=== PATIENT | male | born 1980 | race Caucasian/White ===

== ENCOUNTER 2025-07-08 13:58 | Emergency (ER) | payer OTHER, SELFPAY ==
--- NOTE | ~2025-07-08 | CT_ITS ---
CLINICAL HISTORY: left flank pain CT abdomen and pelvis without contrast Comparison: None provided Findings: No consolidation or effusion. Unremarkable abdominal organs. No renal or ureteral calculus or hydronephrosis. Prior cholecystectomy. Moderately severe fecal retention within the colon. Moderate distention of the stomach with ingested material. No bowel edema or dilatation. Pelvic contents unremarkable. Normal appendix. No acute fracture. IMPRESSION: 1. No urolithiasis or hydronephrosis. 2. Moderately severe fecal retention within the colon. This document has been electronically signed by: Monae West MD on 07/08/2025 16:47:03
[2025-07-08 14:05] VITALS: BP 156/90; PULSE 80; O2SAT 99
[2025-07-08 14:23] VITALS: BP 120/61; PULSE 69; RESP 16; TEMP 36.6; O2SAT 98; BMI 29.8
[2025-07-08 14:34] LABS: Appearance Urine Clear; Glucose Urine UA Negative (Negative); PH 6.0 (5.0-9.0); Specific Gravity - Urine 1.010 (1.005-1.025)
[2025-07-08 14:37] LABS: MANUAL DIFF FLAG NO
[2025-07-08 14:38] LABS: Hematocrit 37.8 % (42.0-52.0); Hemoglobin 13.6 g/dl (14.0-18.0); Imm Gran Abs Auto 0.05 X10*3/uL (0.00-0.03); Imm Gran Pct Auto 0.7 % (0.0-0.4); Lymphocytes Absolute Auto 1.9 X10*3/uL (1.2-4.9); Mean Corpuscular HGB Conc 36.0 g/dl (31.0-36.0); Mean Corpuscular Hemoglobin 31.1 pg (27.0-33.0); Mean Corpuscular Volume 86.3 fL (80.0-98.0); NRBC Abs Auto 0.000 X10*3/uL (0.0-0.012); NRBC Pct Auto 0.0 /100WBC (0.0-0.2); Platelet Count 178 X10*3/uL (160-400); Red Blood Count 4.38 X10*6/uL (4.60-5.80); White Blood Count 7.6 X10*3/uL (4.8-10.8)
--- NOTE | 2025-07-08 14:44 | ED.MALEGU ---
HPI - Male Genitourinary General Chief complaint: Urogenital-Male Stated complaint: L FLANK PAIN X 1 WK, H/O KID STONES Time Seen by Provider: 07/08/25 14:39 Source: patient and EMS Mode of arrival: EMS Limitations: no limitations History of Present Illness ED Provider: DR. Lind HPI Narrative: 44-year-old male history of kidney stone presented today with left flank pain x 5 days, +frequency urination, no hematuria, no dysuria. No fever, no chills, no bleeding, +left flank pain. No history of intra-abdominal surgery in the past, + frequency urination. Related Data Home Medications ?Medication ?Instructions ?Recorded ?Confirmed acetaminophen 325 mg tablet 650 mg PO Q4H PRN Pain (Scale 07/08/25 07/08/25 Score 1-3) calcium carbonate 500 mg PO Q4H PRN Heartburn 07/08/25 07/08/25 clonidine HCl 0.1 mg tablet 0.1 mg PO BID PRN Anxiety 07/08/25 07/08/25 desvenlafaxine 50 mg 50 mg PO DAILY 07/08/25 07/08/25 tablet,extended release 24 hr docusate sodium 100 mg capsule 100 mg PO BID PRN Constipation 07/08/25 07/08/25 guaifenesin 600 mg tablet, 1,200 mg PO Q12H PRN Cough 07/08/25 07/08/25 extended release 12 hr hydroxyzine pamoate 50 mg capsule 50 mg PO Q4H PRN Anxiety 07/08/25 07/08/25 ibuprofen 400 mg tablet 400 mg PO Q8H PRN Pain 07/08/25 07/08/25 lidocaine 4 % topical patch 1 patch topical DAILY 07/08/25 07/08/25 loperamide 2 mg tablet 2 mg PO QID PRN Loose Stool 07/08/25 07/08/25 melatonin 3 mg tablet 3 mg PO BEDTIME PRN Insomnia 07/08/25 07/08/25 mirtazapine 7.5 mg tablet 7.5 mg PO BEDTIME 07/08/25 07/08/25 nicotine (polacrilex) 2 mg gum 2 mg buccal Q2H PRN NICOTINE 07/08/25 07/08/25 WITHDRAWAL nicotine 21 mg/24 hr daily 1 patch transdermal DAILY 07/08/25 07/08/25 transdermal patch olanzapine 5 mg disintegrating 5 mg PO DAILY PRN AGITATION/RACING 07/08/25 07/08/25 tablet THOUGHTS olanzapine 7.5 mg tablet 7.5 mg PO BEDTIME 07/08/25 07/08/25 ondansetron 4 mg disintegrating 4 mg PO Q6H PRN N/V 07/08/25 07/08/25 tablet sennosides 8.6 mg tablet (senna) 17.2 mg PO DAILY PRN Constipation 07/08/25 07/08/25 Previous Rx's ?Medication ?Instructions ?Recorded docusate sodium 100 mg capsule 100 mg PO BID #30 caps 07/08/25 (Colace) polyethylene glycol 3350 17 17 g PO DAILY #510 grams 07/08/25 gram/dose oral powder (Miralax) Allergies Allergy/AdvReac Type Severity Reaction Status Date / Time No Known Allergies Allergy Verified 07/08/25 14:25 Review of Systems Review of Systems: All other systems are reviewed and are negative Constitutional: Reports as per HPI and Reports no additional constitutional complaints Eyes: Reports as per HPI and Reports no additional eye complaints Reports system reviewed and no additional complaints, except as documented Cardiovascular: Reports as per HPI and Reports no additional cardiovascular complaints Respiratory: Reports as per HPI and Reports no additional respiratory complaints Gastrointestinal: Reports as per HPI and Reports no additional gastrointestinal complaints Genitourinary: Reports no additional female genitourinary complaints Musculoskeletal: Reports no additional musculoskeletal complaints Skin/Breast: Reports system reviewed and no additional complaints, except as docu Psychiatric: Reports no additional psychiatric complaints Endocrine: Reports no additional endocrine complaints Hematologic/Lymphatic: Reports no additional hematologic/lymphatic complaints Allergic/Immunologic: Reports no additional allergic/immunologic complaints Reports system reviewed and no additional complaints, except as documented and Reports Abnormal speech present [facility] Social History Social History Smoked in Last 30 Days: No Use of substances other than those prescribed or required for medical reasons: No Advance Directives: Yes Advance Directives Information Provided: No Advance Directives on File: No Physical Exam Vital Signs: Vital Signs: Last Vital Signs Temp 98.1 F 07/08/25 16:20 Pulse 63 07/08/25 16:20 Resp 20 07/08/25 16:20 BP 99/62 07/08/25 16:20 Pulse Ox 97 07/08/25 16:20 O2 Del Method Room Air 07/08/25 16:20 BMI result Body Mass Index 29.8 Vital signs have been reviewed and appear to be correct. Blood pressure elevated. Heart rate normal. Respiratory rate normal. Temperature normal. Oxygen saturation normal. Appearance: Alert. Oriented X3. No acute distress. Head: Normal external exam. Normocephalic. Atraumatic. No Clay signs noted. No raccoon eyes noted Eyes: PERRLA. EOMI. Conjunctiva and sclera normal. Eyelids normal. ENT: TM's Normal. Pharynx normal. Uvula midline. Moist mucous membranes. No trismus noted. No drooling noted. No muffled voice noted. Neck: Normal inspection. Neck supple. FROM. No adenopathy. Thyroid Normal. No meningeal signs. No neck mass noted. CVS: Normal heart rate and rhythm. Heart sound normal. No murmurs noted. Pulses normal throughout. Respiratory: No respiratory distress. Painless inspiration. Breath sounds normal. No wheezes/rales/rhonchi noted. Chest nontender. No accessory muscle usage noted or decreased air movement noted. Abdomen: Soft and nontender. Bowel sounds normal in all 4 quadrants. No distention noted. No organomegaly noted. No visible injury noted. Back: L CVA tenderness. Full range of motion noted. Skin: Skin warm and dry. Normal skin color. Normal skin turgor. No rashes/lesions/lacerations noted. Extremities: No lower extremity edema. Extremities exhibit normal range of motion. Extremities nontender. Neuro: Oriented X 3. Cranial nerve exam: II-XII are grossly intact No motor deficit. No sensory deficit. Reflexes normal. Course Reevaluation(s) Reevaluation #1: Left flank pain history of kidney stones. Await for CT reading. UA is clear and clean. Signed out to Dr. Morris to check CT abdomen and pelvis. Time: 03:30 Reevaluation #2: MELIDA Vargas 07/08/251816 I received patient in sign-out pending imaging and disposition. In summary, patient presents from [facility] with reported left flank and left lower abdominal pain x5 days. Reports urinary frequency this morning without overt hematuria. No other urinary symptoms. Reports history of renal stones. CBC without leukocytosis or anemia. Chemistry does not reveal SOFÍA. Urinalysis negative for infection or blood. CT scan does not demonstrate urolithiasis or hydronephrosis. There is moderately severe fecal retention within the colon. No evidence of bowel obstruction. I discussed results with my attending dr. dalton. There is no rectal fecal impaction so patient would not benefit from disimpaction in the ED. Will start him on bowel regimen of MiraLax and Colace and discharge back to facility. Patient has remained stable throughout ED visit today. Discussed worrisome signs and symptoms and when to return to the ED. All questions answered at this time. Patient is agreeable with disposition and stable for discharge. Medications Administered Discontinued Medications Generic Name Dose Route Start Last Admin Trade Name Freq PRN Reason Stop Dose Admin Docusate Sodium 200 mg 07/08/25 17:59 07/08/25 18:06 Docusate Sodium 100 Mg Capsule PO 07/08/25 18:00 200 mg ONCE ONE Administration Hydromorphone HCl 1 mg 07/08/25 14:42 07/08/25 14:59 Hydromorphone Hcl 1 Mg/Ml Syringe IVPUSH 07/08/25 14:43 1 mg ONCE ONE Administration Protocol Sodium Chloride 1,000 mls @ 999 mls/hr 07/08/25 14:44 07/08/25 16:42 Ns IV 07/08/25 15:44 Infused .Q1H1M ONE Infusion Acetaminophen 1,000 mg in 100 mls @ 400 mls/hr 07/08/25 17:59 07/08/25 18:07 Ofirmev IV 07/08/25 18:13 400 mls/hr ONCE ONE Administration Ketorolac Tromethamine 15 mg 07/08/25 14:42 07/08/25 14:59 Ketorolac Tromethamine 15 Mg/Ml Vial IVPUSH 07/08/25 14:43 15 mg ONCE ONE Administration Polyethylene Glycol 17 gm 07/08/25 17:59 07/08/25 18:07 Polyethylene Glycol 3350 17 Gm Powd.Pack PO 07/08/25 18:00 17 gm ONCE ONE Administration Medical Decision Making Differential Diagnosis Differential Diagnoses: The differential diagnosis associated with the presentation includes (Renal colic, gallbladder colic, acute appendicitis, pyelonephritis, electrolyte derangement, severe anemia.) Admission/Observation Consideration of admission/observation: Escalation of care including admission/observation considered Lab Data MDM Lab Attestation statement: I reviewed the patient's lab results. 07/08/25 14:34 07/08/25 14:34 Labs: Lab Results 07/08/25 07/08/25 Range/Units 14:27 14:34 WBC 7.6 (4.8-10.8) X10*3/uL RBC 4.38 L (4.60-5.80) X10*6/uL Hgb 13.6 L (14.0-18.0) g/dl Hct 37.8 L (42.0-52.0) % MCV 86.3 (80.0-98.0) fL MCH 31.1 (27.0-33.0) pg MCHC 36.0 (31.0-36.0) g/dl RDW 13.1 (11.0-16.0) % Plt Count 178 (160-400) X10*3/uL MPV 9.8 (9.4-12.4) fL Immature Gran % (Auto) 0.7 H (0.0-0.4) % Neut % (Auto) 62.4 (45-73) % Lymph % (Auto) 25.5 (20-40) % [place] % (Auto) 8.5 (2-11) % Eos % (Auto) 2.5 (0-4) % Baso % (Auto) 0.4 (0-2) % Lymph # (Auto) 1.9 (1.2-4.9) X10*3/uL [place] # (Auto) 0.6 (0.1-1.2) X10*3/uL Eos # (Auto) 0.2 (0.0-0.4) X10*3/uL Baso # (Auto) 0.0 (0.0-0.2) X10*3/uL Abs Immat Gran (auto) 0.05 H (0.00-0.03) X10*3/uL Absolute Neuts (auto) 4.7 (2.0-8.3) x10*3/uL Absolute Nucleated RBC 0.000 (0.0-0.012) X10*3/uL Nucleated RBC % (auto) 0.0 (0.0-0.2) /100WBC Sodium 141 (135-145) mmol/L Potassium 4.0 (3.3-5.1) mmol/L Chloride 105 (96-108) mmol/L Carbon Dioxide 29 (22-29) mmol/L Anion Gap 11 L (12-20) BUN 16 (9-16) mg/dL Creatinine 0.74 (0.5-1.4) mg/dL Estim Creat Clear Calc 159.0 Estimated GFR > 60 Random Glucose 114 (60-115) mg/dL Calcium 8.8 (8.4-10.2) mg/dL Total Bilirubin 0.5 (0.0-1.0) mg/dL AST 25 (5-37) U/L ALT 30 (0-40) U/L Alkaline Phosphatase 40 (39-117) U/L Total Protein 6.3 L (6.5-8.0) g/dL Albumin 4.1 (3.5-5.0) g/dL Urine Color Yellow Urine Appearance Clear Urine pH 6.0 (5.0-9.0) Ur Specific [place] 1.010 (1.005-1.025) Urine Protein Negative (Neg-Trace) mg/dL Urine Glucose (UA) Negative (Negative) mg/dL Urine Ketones Negative (Negative) mg/dL Urine Blood Negative (Negative) Urine Nitrite Negative (Negative) Ur Leukocyte Esterase Negative (Negative) Independent Interpretation I performed an independent interpretation of an: CT Scan Radiology Impression Discussion of test interpretation with radiology: I have reviewed the radiologist's reading. Discharge Plan Discharge Clinical Impression: Left flank pain, Constipation Patient Disposition: Home, Self-Care Instructions: Abdominal Pain (ED) Additional Instructions: You were evaluated in the ED today for left flank/abdominal pain Your blood work is reassuring Your urine does not demonstrate blood or infection The CT scan of your abdomen shows that you are very constipated. There is no evidence of bowel obstruction. You need to be placed on a bowel regimen. I am recommending MiraLax to start having large bowel movements. I also recommend Colace, a stool softener. Take this twice daily. Return with any new or worsening symptoms. In the case of an emergency call 911. Prescriptions: New polyethylene glycol 3350 [Miralax] 17 gram/dose powder 17 g PO DAILY Qty: 510 0RF docusate sodium [Colace] 100 mg capsule 100 mg PO BID Qty: 30 0RF No Action sennosides [senna] 8.6 mg Tablet 17.2 mg PO DAILY PRN (Reason: Constipation) clonidine HCl 0.1 mg Tablet 0.1 mg PO BID PRN (Reason: Anxiety) acetaminophen 325 mg Tablet 650 mg PO Q4H PRN (Reason: Pain (Scale Score 1-3)) lidocaine 4 % Adhesive Patch,Medicated 1 patch TOPICAL DAILY Rx Instructions: REMOVE AFTER 12 HOURS nicotine (polacrilex) 2 mg Gum 2 mg BUCCAL Q2H PRN (Reason: NICOTINE WITHDRAWAL) loperamide 2 mg Tablet 2 mg PO QID PRN (Reason: Loose Stool) Rx Instructions: administer after each loose stool until symptoms controlled; do not exceed 8 mg per 24 hrs hydroxyzine pamoate 50 mg Capsule 50 mg PO Q4H PRN (Reason: Anxiety) melatonin 3 mg Tablet 3 mg PO BEDTIME PRN (Reason: Insomnia) olanzapine 7.5 mg Tablet 7.5 mg PO BEDTIME ibuprofen 400 mg Tablet 400 mg PO Q8H PRN (Reason: Pain) nicotine 21 mg/24 hr Patch 24 Hour 1 patch TRANSDERMAL DAILY docusate sodium 100 mg Capsule 100 mg PO BID PRN (Reason: Constipation) calcium carbonate [Tums 500] 500 mg calcium (1,250 mg) Tablet,Chewable 500 mg PO Q4H PRN (Reason: Heartburn) ondansetron 4 mg Tablet,Disintegrating 4 mg PO Q6H PRN (Reason: N/V) olanzapine 5 mg Tablet,Disintegrating 5 mg PO DAILY PRN (Reason: AGITATION/RACING THOUGHTS) mirtazapine 7.5 mg Tablet 7.5 mg PO BEDTIME desvenlafaxine 50 mg Tablet Extended Release 24 Hr 50 mg PO DAILY guaifenesin 600 mg Tablet Extended Release 12hr 1,200 mg PO Q12H PRN (Reason: Cough) Referrals: Physician,Unknown J [Primary Care Provider, Medical] Print Language: Cypriot
[2025-07-08 14:59] VITALS: RESP 16
[2025-07-08 15:03] LABS: Alanine Aminotransferase 30 U/L (0-40); Albumin Level 4.1 g/dL (3.5-5.0); Alkaline Phosphatase 40 U/L (39-117); Anion Gap 11 (12-20); Aspartate Amino Transferase 25 U/L (5-37); Blood Urea Nitrogen 16 mg/dL (9-16); Calcium 8.8 mg/dL (8.4-10.2); Carbon Dioxide 29 mmol/L (22-29); Chloride 105 mmol/L (96-108); Creatinine Clr Calc Pharmacy 159.0; Estimated Glomerular Filt Rate > 60; Potassium 4.0 mmol/L (3.3-5.1); Sodium 141 mmol/L (135-145); Total Protein 6.3 g/dL (6.5-8.0)
--- NOTE | 2025-07-08 15:18 | PC.NURSE ---
Pt changed over into safety clothing and security did safety check due to coming from psych facility. 1:1 sitter. pt denies SI or HI. here for R/O kidney stone. 5 days of LLQ ABD pain radiating to left flank with frequent urination.
--- OUTSIDE RECORDS SUMMARY | 2025-07-08 15:30 | XMS_ITS | Data Portability ---
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 Address [address] [place] [address] Care Team Providers Care Client Finance Analyst Name Role Phone JENISE DUFFY Primary Care Provider [phone] Assessment Encounter Date Assessment Date Assessment LastModified by Organization Details LastModified Time 03/30/2024 03/30/2024 Reviewed: [facility] Disclaimer: Portions of this note were created with the assistance of YAMAP speech recognition software and may include typographical or grammatical errors or unintentional word/phrase substitutions.Pl ease do not hesitate to contact directly with any questions or concerns. Discussed risks and benefits of all medications prescribed today. Patient voices understanding of presented plan and treatment course. [email or web address] Not available 03/28/2024 18:40:38 Plan of Treatment Reminders Order Date Submit Date Provider Last Modified By Organization Details Last Modified Time Details Appointments None recorded. Lab TSH, serum or plasma [address] [facility] - [facility], [address] [place] [address], [address], 4 12:58:08 vitamin B12, serum [email or web address], [address] [place] [address], [address], 4 12:58:08 CMP, serum or plasma [address] [facility], [address] [place] [address], [address], 4 12:58:07 CBC w/ diff 2022 023 [email or web address] [facility], [address] [place] [address], [address], 4 12:58:07 vitamin D, 25-hydroxy, total, serum 2022 023 [email or web address], [address] [place] [address], [address], 4 12:58:08 lipid panel, serum 2022 023 [email or web address], [address] [place] [address], [address], 4 12:58:08 Referral facial plastic surgeon referral 2024 025 [email or web address] 5 [facility] [address], [address] [facility], [place], [address], 5 21:06:22 ENT surgery referral - 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, [facility], [place], [address], 5 11:13:20 Procedures None recorded. Surgeries None recorded. Imaging None recorded. Medication Orders trazodone 100 mg tablet 2024 025 [employer] | mentor | [address], [address] [place], [address], 5 15:53:22 citalopram 20 mg tablet 2024 025 [employer] | mentor | [address], [address] [place], [address], 5 15:53:21 hydroxyzine HCl 25 mg tablet 2024 025 [employer] | mentor | [address], [address] [place], [address], 5 15:53:23 amoxicillin 500 mg capsule 2023 025 [facility], [address] [place], [place], [id number], 15:23:10 Unisom (doxylamine ) 25 mg tablet 2023 024 [employer] | mentor | [address], [address] [place], [address], 5 15:33:05 escitalopra m 10 mg tablet 2023 024 [employer] | mentor | [address], [address] [place], [address], 5 15:32:02 clonidine HCl 0.1 mg tablet 2023 024 [employer] | mentor | [address], [address] [place], [address], 5 15:23:32 citalopram 20 mg tablet 2022 023 [employer] | mentor | [address], [address] [place], [address], 3 15:11:05 Patient TargetsNo targets recorded. Patient Instructions Encounter Date Encounter Id Patient Instructions Last Modified By Organization Details Last Modified Time 04/22/2023 [id number] low back pain: exercises [email or web address] Not available 04/22/2023 15:11:03 Lab studies, other chart documentation, ordered studies and the visit lasted 30 minutes including documentation. 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 ordered by neurology at [facility], known perforation getting worse Referring Physician: Jenise Duffy [facility], Encounter Date: 07/25/2024 Facial Plastic Surgeon Refer ral for Perforation of nasal septum Referring Physician: Jenise Duffy [facility], Encounter Date: 03/15/2025 Results Created Date Observation Date Name Description Value Unit Range Abnormal Flag Note LastModifiedBy Organization Detail LastModifiedTime 06/28/20 24 06/24/2024 byron nuous video EEG monit oring , techn ical compo nent; 2-12 hrs (PROC ) No observ ation record ed. [email or web address] Not Available 2023 14:21:42 07/14/20 24 07/11/2024 MRI, brain , w/wo contr ast No observ ation record ed. PAYTON Not Available 2023 12:19:54 Result Notes None recorded. Problems Name Problem SNOMED Code Status Onset Date Resolution Date Notes Provider Name and Address Organization Details Recorded Time Bony swelling of the foot joint 729804755 Active Marika Fu CMA null, [place] [facility] 3 14:48:07 Chest pain 92890973 Active Marika Fu CMA null, [facility] 3 14:48:07 Tobacco dependen ce syndrome 68153253 Active Marika Fu CMA null, [facility] 3 14:48:07 Sinusiti s 55565658 Active Marika Fu CMA null, [facility] 3 14:48:07 Cholecys titis 78045253 Active Not Available [facility] 2 11:04:12 Biliary calculus 207061749 Active Not Available [facility] 2 11:04:12 Edema of uvula 465607018 Active Marika Fu CMA null, [facility] 3 14:48:07 Abscess of submandi bular region 23813194 Active Marika Fu CMA null, [facility] 3 14:48:07 Epilepsy 06449264 Active Marika Fu CMA null, [facility] 3 14:48:07 Omphalit is 204743939 Completed 03/27/[address], [address], [facility] [employer] [facility] 4 07:54:50 Chest pain 33471077 Completed 06/20/2015 Netta Muhammad [address], [address], [facility] [employer] [facility] 6 14:45:39 Sinusiti s 80738086 Completed 06/20/2015 Netta Muhammad [address], [address], [facility] [employer] [facility] 6 14:45:39 Easy bruising 937898423 Active 2016 Marika Fu CMA null, [facility] [employer] [facility] 3 14:48:07 History of cocaine abuse 39070309476 9106 Active 2018 Marika Fu CMA null, [facility] [employer] [facility] 3 14:48:07 Anxiety 48323588 Active [address], [address], [facility] [employer] [facility] 4 13:19:48 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 Please review this document and add these problems to the patient's chart manually as needed. Problem Notes None recorded. Procedures Surgical History Date Name Laterality Status Provider Name and Address Organization Details Recorded Time 10/04/18 97 Orthopedic Surgery completed [facility] 02/14/2014 09:54:17 Tonsillectomy completed [facility] 02/14/2014 09:54:17 PE Tubes completed [facility] 02/14/2014 09:54:17 Imaging Results None recorded. Procedure Notes None recorded. Medical Equipment None Reported. Allergies Allergen ID Allergen Name Allergen Category Reaction Reaction Severity Criticality Documentation Date Start Date Code Code System Note Provider Name and Address Organization Details Recorded Time 787206 No known allergy (situatio n) Not available Not available Not available Not available 07/02/2022 96781 6003 SNOMED Karo DanielleWabasso [address] [place] [address], [address] [place] [address] 14:37:48 No known drug allergies Medications Name Sig Start Date Stop Date Status Note LastModified by Organization Details LastModified Time amoxicilli n cap 500mg active Not Available Not Available Not Available cyclobenza bebeto 10 mg tablet 04/22 completed Not Available Not Available Not Available amoxicilli n 500 mg capsule Take 1 capsule every 8 hours by oral route for 10 days. 03/15 completed Not Available Not Available Not Available Flomax 0.4 mg capsule 06/04 completed Not Available Not Available Not Available sennosides 8.6 mg tablet 06/04 completed Not Available Not Available Not Available Colace 100 mg capsule 04/22 completed not taking Not Available Not Available Not Available clonidine HCl 0.1 mg tablet take one as needed for anxiety spikes not to exceed three a day. 03/15 completed Not Available Not Available Not Available Dilaudid 2 mg tablet 06/04 completed Not Available Not Available Not Available doxycyclin e hyclate 100 mg capsule Take 1 capsule twice a day by oral route for 28 days. 03/09 completed Not Available Not Available Not Available levetirace zarate 500 mg tablet Take 1 tablet twice a day by oral route. 03/15 completed Not Available Not Available Not Available Lasix 40 mg tablet 06/04 completed Not Available Not Available Not Available prednisone 20 mg tablet 06/04 completed Not Available Not Available Not Available penicillin V potassium 500 mg tablet Take 1 tablet every 6 hours by oral route for 5 days. 07/02 completed Not Available Not Available Not Available hydroxyzin e HCl 50 mg tablet Take 1 tablet every day by oral route as needed. 02/20 completed Not Available Not Available Not Available sulfametho xazole 800 mg-trimeth oprim 160 mg tablet TAKE 1 TABLET BY MOUTH TWICE A DAY FOR 10 DAYS 01/28 completed Not Available Not Available Not Available amoxicilli n 500 mg tablet Take 1 tablet every 12 hours by oral route for 10 days. 08/27 completed Not Available Not Available Not Available Dulcolax (bisacodyl ) 10 mg rectal suppositor y 06/04 completed Not Available Not Available Not Available amoxicilli n 875 mg tablet 07/02 completed Not Available Not Available Not Available citalopram 20 mg tablet TAKE ONE TABLET BY MOUTH EVERY DAY 2024 active Not Available Not Available Not Avai lable fentanyl 100 mcg/hr transderma l patch 06/04 completed Not Available Not Available Not Available trazodone 100 mg tablet Take 1 tablet every day by oral route at bedtime. 2024 active Not Available Not Available Not Avai lable hydroxyzin e HCl 25 mg tablet Take 1 tablet 3 times a day by oral route as needed. 2024 active Not Available Not Available Not Avai lable gabapentin 100 mg capsule 06/04 completed Not Available Not Available Not Available ibuprofen 600 mg tablet 04/22 completed Not Available Not Available Not Available Unisom (doxylamin e) 25 mg tablet Take 1 tablet as needed by oral route at bedtime. 03/15 completed Not Available Not Available Not Available amoxicilli n 875 mg-potassi um clavulanat e 125 mg tablet TAKE 1 TABLET BY MOUTH TWICE DAILY FOR 7 DAYS 03/15 completed Not Available Not Available Not Available oxycodone 5 mg tablet TAKE 1 TO 2 TABLET BY MOUTH EVERY 4 HOURS NEEDED 04/22 completed not taking Not Available Not Available Not Available Coreg 12.5 mg tablet 06/04 completed Not Available Not Available Not Available escitalopr am 10 mg tablet take 1/2 tablet a day in the morning for a week; then take a full tablet every day. 03/15 completed Not Available Not Available Not Available Pain Relief Extra Strength (acetamino phen) 500 mg tablet 04/22 completed Not Available Not Available Not Available chlorhexid ine gluconate 0.12 % mouthwash 07/02 completed Not Available Not Available Not Available cholecalci ferol (vitamin D3) 25 mcg (1,000 unit) chewable tablet 06/04 completed Not Available Not Available Not Available oxycodone 5 mg tablet,ora l ONLY (not feeding tubes) 04/22 completed Not Available Not Available Not Available Lidocaine Pain Relief 4 % topical patch 04/22 completed Not Available Not Available Not Available Vitals Date Recorded Body weight Heart rate Oxygen saturation Oxygen saturation in Arterial blood by Pulse oximetry Body mass index (BMI) Body height Systolic And Diastolic Provider Name and Address Organization Details Last Updated DateTime 5 24493.7 7 g 76 /min 99 % 99 % 29.4 kg/m2 181.61 cm 130/82 mm[Hg] Saba Ortez [facility] [employer] [facility] 5 15:26:15 Date Recorded Heart rate Oxygen saturation Oxygen saturation in Arterial blood by Pulse oximetry Systolic And Diastolic Provider Name and Address Organization Details Last Updated DateTime 03/30/2024 110 /min 99 % 99 % 150/80 mm[Hg] Marika Fu [facility] [employer] [facility] 4 13:05:37 Date Recorded Body weight Heart rate Oxygen saturation Oxygen saturation in Arterial blood by Pulse oximetry Systolic And Diastolic Provider Name and Address Organization Details Last Updated DateTime 3 378976. 09 g 80 /min 97 % 97 % 110/78 mm[Hg] Marika Fu [facility] [employer] [facility] 14:51:52 Social History Question Answer Notes LastModified by Organization Details LastModified Time Tobacco Smoking Status Current Every Day Smoker Saba Pérez [facility] 03/15/2025 15:24:38 Do You Have An Advance Directive? Yes Father No Paper Work On File Information not available 06/20/2015 What Is Your Level Of Caffeine Consumption? Occasional Information not available 08/17/2013 How Much Tobacco Do You Chew? None Information not available 06/20/2015 In The 14 Days Before Symptom Onset, Have You Had Close Contact With A Laboratory-confi rmed COVID-19 While That Case Was Ill? No Information not available 01/29/2020 In The 14 Days Before Symptom Onset, Have You Had Close Contact With A Person Who Is Under Investigation For COVID-19 While That Person Was Ill? No Information not available 01/29/2020 What Type Of Diet Are You Following? REGULAR Information not available 03/30/2024 Which Illicit Or Recreational Drugs Have You Used? No Information not available 06/20/2015 Are There Any Guns Present In Your Home? No Information not available 06/20/2015 Hard Of Hearing Or Deaf In One Or Both Ears? No [email or web address] Information not available 02/14/2014 Legally Blind In One Or Both Eyes? No [email or web address] Information not available 02/14/2014 Foreign Travel Yes Informatio n not available 06/20/2015 Do You Have A Family History Of Mental Health Or Substance Abuse? No [email or web address] Information not available 02/14/2014 Date Of 1st Attempt 06/28/2024 Lvm [email or web address] Information not available 06/28/2024 Date Of 2nd Attempt 06/29/2024 [email or web address] Information not available 06/29/2024 Reason For TCM Note: Inpatient Hospital Discharge Inpatient Location: [facility] Admit/ Encounter Diagnosis: R569:Unspecif ied Convulsions Start Date/ Time: 06/19/2024 9:52 End Date/ Time: 06/24/2024 14:06 Discharge Dispo: Home, Self-Care Risk Stratificatio n: Low [email or web address] Information not available 06/28/2024 Medical Records Obtained From Discharging Facility? No Information not available 06/28/2024 Name Of Discharging Facility: [facility] Inpatient Location: [facility] Admit/ Encounter Diagnosis: R569:Unspecif ied Convulsions Start Date/ Time: 06/19/2024 9:52 End Date/ Time: 06/24/2024 14:06 Discharge Dispo: Home, Self-Care Risk Stratificatio n: Low [email or web address] Information not available 06/28/2024 Hospital/NH/ED Visit Date: 06/19/2024 Information not available 06/28/2024 Arrival Time: 9:52 [email or web address] Information not available 06/28/2024 Discharge Time: 14:06 [email or web address] Informati on not available 06/28/2024 Discharge Diagnosis: Unspecified Convulsions [email or web address] Information not available 06/28/2024 Discharge Date 06/24/2024 [email or web address] Informatio n not available 06/28/2024 Nurse Sign Off Of TCM Note: Peggy Ceron TCM Not Completed , Patient Declined .ALLYSSA [email or web address] Information not available 06/28/2024 Patient Agrees To TCM Assessment? No [email or web address] Information not available 06/29/2024 Date Contact Made With Patient 06/29/2024 Patientn Declined To Do TCM Stated Everything Is Fine . Advised To Call If Needed . Agreed [email or web address] Information not available 06/29/2024 Type Of Visit: Med/Surg [email or web address] Informatio n not available 06/28/2024 Patient Contacted After Discharge? Yes [email or web address] Information not available 06/29/2024 Have You Ever Experienced Any Trauma Such As A Sexual Assault, Domestic Violence, Combat Experience, A Sudden Of A Loved One, Or Anything That Made You Excessively Afraid? No Information not available 06/20/2015 Language POLISH Information not available 06/20/2015 Country Of Origin [place] Information not available 06/20/2015 Dietary Regular Information not available 08/17/2013 Marital Status Never Has Girlfriend, Don't Live Together Information not available 09/12/2015 What Was The Date Of Your Most Recent Tobacco Screening? 03/15/2025 Information not available 03/15/2025 How Many Children Do You Have? 1 G Age 6 Information not available 08/17/2013 Seat Belts Used Routinely Yes Information not available 06/20/2015 Smoke Alarm In Home Yes Information not available 06/20/2015 At What Age Did You Start Smoking Tobacco? 28 Information not available 09/12/2015 How Much Tobacco Do You Smoke? 0.25 PPD [email or web address] Information not available 03/15/2025 General Stress Level High Information not available 06/20/2015 Do You Use Sunscreen Routinely? Yes Information not available 06/20/2015 Sex: Male Functional Status Question Answer Note LastModified by Organizat ion Details LastModified Time Do you or have you ever used any other forms of tobacco or nicotine? Yes Information not available 04/22/2023 What is your level of alcohol consumption? None Information not available 03/30/2024 Do you or have you ever used smokeless tobacco? 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 Never used electronic cigarettes Information not available 02/20/2021 What is your exercise level? Moderate Information not available 06/20/2015 Mental Status None recorded. Family History Relationship Description Onset Age of this Age Resolved Age Notes LastModified by Organization Details LastModified Time Paternal Grandfather Myocardial infarction [email or web address] Not available 12/03 14:45:50 Maternal Grandmother Malignant neoplastic disease liver [email or web address] Not available 2015 14:45:50 Mother Well adult [email or web address] Not availabl e 12/04/2015 14:45:50 Father Disorder of lung [email or web address] Not available 2015 14:45:50 Medical History Condition Response Gout N Gynecologic problems N Muscle, Joint, or Bone Problems N Arthritis N Infertility N Cancer (of any kind) N Defects or Inherited Diseases N Stroke N Headache N Asthma, COPD, Breathing or Lung Disorder Y Cardiac History, Heart Murmur, [place] N Skin Problems N Food or Environmental Allergies N Bleeding Disorder N Neuropathy N Anxiety/Depression N Hernia N Developmental or Behavioral Disorders N Blood Pressure High or Low N Breast Problem N Dizziness or Fainting N Seizures or Convulsions N Eye or Vision Problems N Thyroid Problems N GI Problems N Diabetes N Bladder,Kidney Problems or Recurrent UTI 's N Prostate issues, ED or Sexual Problem N Insomnia N Cholesterol High or Low N Chronic Pain N Ear Nose & Throat (ENT) Problems N Osteoporosis N Liver Disease or Hepatitis N Immunizations Vaccine Type Date Status Note Provider Nam e and Address Organization Details Recorded Time COVID-19, mRNA, LNP-S, PF, 100 mcg/0.5mL dose or 50 mcg/0.25mL dose 1 completed Remington Lanza RN null, [facility] 09/07/2021 10:31:22 COVID-19, mRNA, LNP-S, PF, 100 mcg/0.5mL dose or 50 mcg/0.25mL dose 1 completed Marika Fu ART TRACER null, [facility] 04/22/2023 14:48:08 COVID-19, mRNA, LNP-S, PF, 100 mcg/0.5mL dose or 50 mcg/0.25mL dose 1 completed Marika Fu ART TRACER null, [facility] 04/22/2023 14:48:08 pneumococcal polysaccharide PPV23 1 completed Marika Fu ART TRACER null, [facility] 04/22/2023 14:48:08 Influenza, split virus, quadrivalent, PF 1 completed Marika Fu ART TRACER null, [facility] 04/22/2023 14:48:08 Tdap 1 completed Marika Fu ART TRACER null, [facility] 04/22/2023 14:48:08 Hep A, adult 1 completed Marika Fu ART TRACER null, [facility] 04/22/2023 14:48:08 Tdap 5 completed Not Available [facility] 10/21/2019 02:38:51 Past Encounters Encounter ID Performer Location Encounter Start Date Encounter Closed Date Diagnosis/Indication Diagnosis SNOMED-CT Code Diagnosis ICD10 Code Diagnosis IMO Codes Diagnosis Note [id number] MELECIO Mcelroy [address] [address] 07/12/2013 14:25:30 07/12/2013 15:49:51 [id number] Yasmin Cobb [address] [address] 08/17/2013 10:06:01 08/17/2013 13:01:34 Sinusitis 81946503 [id number] Khris Stone MD [address] [address] 06/20/2015 14:52:52 06/20/2015 15:26:19 Bony swelling of the foot joint 047397440 discussion need to get xry ortho consult, likely need a procedure [id number] Khris Stone MD [address] [address] 07/25/2015 11:43:14 07/25/2015 12:35:28 Common cold 58806591 J00 [id number] Khris Stone MD [address] [address] 09/12/2015 10:11:26 09/12/2015 11:01:20 Chest pain 73238296 R07.9 present at time of exam and EKG which is normal his appearance is also normal never went to stress test that was ordered in 2012 low risk for CAD but would recommend a stress test anxiety most likely cause and he is aware of this fu after stress test knows to call 911 if became severe [id number] Khris Stone MD [address] [address] 09/19/2015 14:52:42 09/19/2015 15:36:16 Adult health examination 882402782 Z00.01 Chest pain 42830103 R07. 9 with lower stress level sx gone With possibilit y of stress related CAD still present stress test is still a reasonable plan. Obesity 220601360 E66.9 Discussion , he agrees to nutrition visit and notes that he has to lose weight. Essential hypertension 13167784 I10 Blood pressures have been borderline elevated and probably needs attention. Lifestyle changes should be adequate. Glad he is agreeing to nutrition visit. Discussed diet and exercise. Follow-up next month after his stress test. Tobacco de pendence syndrome 83530739 F17.290 Smokes very little but still needs to stop. Will discuss further at next visit. Administra tion of diphtheria, pertussis, and tetanus vaccine 727175720 Z23 [id number] Enid Cramer MD [address] [address] 12/04/2015 14:28:00 12/04/2015 15:01:32 Sinusitis 53134577 J32.9 [id number] Khris Stone MD [address] [address] 05/14/2016 11:23:02 05/14/2016 12:10:00 Obesity 775428085 E66.9 clearly is losing weight, aand is in better shape than he was but he still has some increased risk when he dives, he says he will not be doing anything severe and understand s he is under increased risk and I have indicated that on his form. He will return for routine exam. [id number] Favian Etienne MD [address] [address] 05/13/2017 10:46:30 05/13/2017 11:25:24 Easy bruising 938293626 R58 2 days of unusual linear bruising on his abdomen and bilateral thighs. No specific injury. No tick bites. Mild nausea but no other symptoms. Will check labs. Return precaution s given. [id number] Khris Stone MD [address] [phone] 03/09/2019 09:58:33 03/09/2019 11:29:29 Cellulitis of lower limb [id number] L03.119 Perforatio n of nasal septum 74988684 J34.89 History of cocaine abuse [id number] 96737 F14.10 [id number] Khris Stone MD [address] [address] 01/29/2020 16:32:45 01/30/2020 08:22:43 Suspected COVID-19 [id number] R68.89 Likely suspect, encouraged him to get testing he will call [facility] usual suggestion s, would recommend quarantine himself.Ot herwise usual recommenda tions, call if becomes weak, unable to eat or drink, respirator y distress etc.Curren tly his appetite is still good. [id number] Moise [place] MD [address] [address] 02/20/2021 13:30:41 02/20/2021 14:28:27 Dysarthria 1274465 R47.1 atypical episodes of loss of speech, some features concerning for seizure, but less likely as he remembers the incidents -neuro referral -f/u here after Depressive disorder 3543 9007 F32.9 unclear diagnosis stable on citalopram for now continue at this dose and review at follow up [id number] Moise [place] MD [address] [address] 03/06/2021 09:44:19 03/06/2021 11:29:57 Dysarthria 6161441 R47.1 atypical episodes of loss of speech, some features concerning for seizure, but less likely as he remembers the incidents -neuro referral (will try to get sooner given frequency) -f/u here after Depressive disorder 3548 9007 F32.9 unclear diagnosis stable on citalopram for now continue at this dose and review at follow up [id number] Moise [place] MD [address] [address] 09/03/2021 14:21:22 09/07/2021 10:42:32 Administration of SARS-CoV-2 antigen vaccine [id number] Z23 Patient monitored for 15 minutes. No adverse reactions noted. Patient tolerated injection well. Common side effects reviewed and vaccinatio n card with patient info sheet given. Patient demonstrat es understand ing that optimal immunity following booster dose occurs at 10-14 days. COVID immunizati on series is complete at this time. [id number] Khris Stone MD [address] [address] 07/02/2022 14:32:45 07/03/2022 16:11:39 Epilepsy 85712574 G40.909 Patient with previous history of possible partial seizures now presents with a grand mal episode. Evaluation at the emergency department was unrevealin g including CT of the head. Because of the previous history he was placed on Keppra and has not had a recurrence . Previous evaluation by neurology was unrevealin g but he needs to be seen with this developmen t. Will have them go back to [facility] and hopefully can see him promptly. To follow up with me within a few weeks. [id number] Khris Stone MD [address] [address] 04/22/2023 14:43:23 04/22/2023 15:41:49 Epilepsy 09358314 G40.909 No change in medication until recommende d by neurology Depressive disorder 3548 9007 F32.9 Tapering of citalopram is reasonable and we discussed how to do that Adult [facility] examination 007662340 Z00.00 Low back pain 043091748 M54.50 Limited symptoms now but had been into the ED so I gave him exercises to do to prevent recurrence Mixed anxi ety and depressive disorder 331342991 F41.8 [id number] MELECIO Godinez [address] [address] 03/30/2024 12:55:30 03/30/2024 13:30:45 Epilepsy 29898766 G40.909 No change in medication until recommende d by neurology Low back pain 532981760 M54.50 Limited symptoms now but had been into the ED so I gave him exercises to do to prevent recurrence Mixed anxi ety and depressive disorder 138722653 F41.8 Patient presents with symptoms consistent with anxiety. BRTITNEY 7 reflects this diagnosis as well. Plan:-Rest art escitalopr am with slow start up.-Unisom prn for sleep anxiety-cl onidine prn for anxiety spikes-Ref erral to behavioral health patient educated on short term nature of initial [facility] jeremy dahl.-Discuss ion of healthy habits including exercise and mindfulnes s.-Reinfor mavis anxieties relationsh ip to sleep, diet and most activities in life.-Disc ussed CBT mindfulnes sFollow up if new or worsening symptoms. [id number] Peggy Ceron LPN [facility] [address] [place] [address] 06/28/2024 13:01:36 06/29/2024 10:32:51 [id number] Jenise Deshawn [address] [place] [address] 07/25/2024 07:49:35 07/25/2024 10:27:34 Dental abscess [id number] K04.7 report left upper molar pain/infec tion/broke n tooth. 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 once a week, feels stable on current meds Chronic insomnia 4167138 04 F51.04 717897 finding trazodone helpful Perforatio n of nasal septum 92470490 J34.89 62954 has b een to ENT, no offer of repair, has f/u CT of sinuses scheduled 03/20, refer to plastics for second opinion Seizure disorder 6161352 02 G40.909 has f/u with neurology at [facility] Cocaine misuse 084403472 F14.10 in recovery since 12/16/24 Health Concerns Section Related Observation LastModified by Organization Detai ls LastModified Time None Recorded Concern Status LastModified by Organization Details LastModified Time None Recorded Advance Directives Directive Y: Father No paper work on f ile Payers Insurance Date Sequence Insurance Name Policy Number Policy Evans Covered Member ID Evans Member ID Guarantor Name 07/19/2024 1 [facility] Ayden Bauer [id number] Ayden Bauer 07/19/2024 1 [facility] PUBLIC [facility] TYPE I (O) Ayden Bauer [id number] Ayden Bauer 07/19/2024 1 [facility] ([facility] [id number] Ayden Mckeonche [id number] Ayden Yoo Mikequincy 06/26/2024 1 *SELF PAY* Demond Yoo Lizette 07/19/[address] (O) [id number] Ayden Blache [id number] Ayden Yoo Lizette 07/19/2024 1 [facility] Ayden Blache [id number] Ayden Yoo Blache 07/19/2024 1 [employer] [id number] Ayden Blache [id number] Ayden Yoo Blaquincy 07/02/2022 1 *SELF PAY* Demond estelagerber Charlesan Blache 07/19/2024 1 [facility] (MEDICAID O) Ayden Blache [id number] Ayden Fredo Blache 04/13/2025 1 [facility] (MEDICAID HMO) Ayden Blache [id number] Ayden Fredo Blache 05/14/2016 1 *SELF PAY* Demond bar Fredo Blache 07/19/2024 1 [facility] ([facility] Ayden Blache [id number] Ayden Yoo Blache 07/19/2024 1 [facility] (MEDICAID HMO) Ayden Blache [id number] Ayden Yoo Mikequincy Notes Date Note Type Note Provider Name a az Address Organization Details Recorded Time 04/22/2023 text/html quit drinking 3 years agohx cocaine none since [address] [facility] started on citalopram therea stop in citalopram for just a few days led to a seizureHas neurologist who has not recommended stopping either medication. Khris Stone MD [address] [place] [address], [phone], [facility] [employer] 04/22/2023 17:05:57 03/30/2024 text/html 43 year old male smoker with epilepsy, htn presents for medication review. epilepsy: still on keppra htn: high today but patient is currently not interested in medication. Anxiety: went of citalopram and has several stressors including losing his job. endorses he has anxiety with spikes and poor sleep Patient denies any other changes in health or new symptoms at this time. Zhen Cox, [facility] [address], [place], [phone], [facility] [employer] 03/30/2024 16:33:08 07/25/2024 text/html Stefani. from pt who had mri at [facility] ordered by his neurologist finding large defect in his nasal septum. He has a hx of perforation and no longer using any [place] substances. He also has a broken tooth/infection. Jenise Duffy, [address], [place], [address], [facility] [employer] [facility] 07/25/2024 10:19:11 03/15/2025 text/html Pt lives alone in [place]. He grew up in [place]. He has 2 children. He was in rehab for 45 days in [place] for [place] cocaine. He gets quarterly MRI's for seizure disorder and off of meds and sees Dr. Swanson at [facility]. He recently saw ENT who said they cannot repair is perforated septum. 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 Jenise Duffy, [address], [place], [address], [facility] [employer] 03/15/2025 16:04:27"
--- OUTSIDE RECORDS SUMMARY | 2025-07-08 15:30 | XMS_ITS | Clinical Summary ---
Author Organization [facility] Address [address] [place] [address] Care Team Providers Care Tanning Consultant Name Role Phone Unknown Primary Care Provider [phone] Allergies No known active allergies Medications amoxicillin-clav ulanate (AUGMENTIN) 875-125 MG per tabletIndication s:Submandibular abscess Take 1 tablet by mouth 2 (two) times a day. 14 tablet 08/12/2021 Active acetaminophen (TYLENOL) 500 MG tabletIndication s:Submandibular abscess Take 1 tablet (500 mg total) by mouth 4 times daily (every 6 hours) as needed for mild pain. 30 tablet 1 08/12/2021 Active ibuprofen (MOTRIN) 600 MG tabletIndication s:Submandibular abscess Take 1 tablet (600 mg total) by mouth 4 times daily (every 6 hours) as needed for mild pain. 30 tablet 1 08/12/2021 Active oxyCODONE (ROXICODONE) 5 MG immediate release tabletIndication s:Submandibular abscess Take 1 tablet (5 mg total) by mouth every 4 (four) hours as needed for severe pain. Max Daily Amount: 30 mg 8 tablet 08/12/2021 Active chlorhexidine (PERIDEX) 0.12 % oral solutionIndicati ons:Submandibula r abscess Apply 15 mL to the mouth or throat 2 (two) times a day. 120 mL 08/12/2021 Active Active Problems Problem Noted Date Diagnosed Date Submandibular abscess 08/08/2021 Social History Tobacco Use Types Packs/Day Years Used Date Smoking Tobacco: Every Day Cigarettes 0.5 5 Smokeless Tobacco: Never Sex and Gender Information Value Date Recorded Sex Assigned at Not on file Legal Sex Male 9:29 PM EDT Gender Identity Not on file Sexual Orientation Not on file Last Filed Vital Signs Vital Sign Reading Time Taken Comments Blood Pressure 138/76 08/12/2021 7:42 AM EST Pulse 56 08/12/2021 7:42 AM EST Temperature 35.6 C (96 F) 08/12/2021 7:42 AM EST Respiratory Rate 18 08/12/2021 7:42 AM EST Oxygen Saturation 99% 08/12/2021 7:42 AM EST Inhaled Oxygen Concentration - - Weight 107 kg (235 lb) 08/08/2021 8:18 AM EDT Height 182.9 cm (6' 0.01 ) 08/08/2021 8:18 AM ED T Body Mass Index 31.86 08/08/2021 8:18 AM EDT Plan of Treatment Health Maintenance Due Date Last Done Comments Hepatitis C Virus Screening 1982 HIV Screening 1995 DTaP/Tdap/Td Vaccines (1 - Tdap) 2001 Hepatitis B Vaccines (1 of 3 - 19+ 3-dose series) 2001 Influenza Vaccine 05/04/2025 06/28/2021 COVID-19 Vaccine (3 - 2024-2 6 season) 2025 12/06/2020, 11/08/2020 HPV Vaccines (No Doses Required) Completed Pneumococcal Vaccine: Pediatric (0-5 Years) and At-Risk Patients (6 to 49 Years) Aged Out No longer eligible b ased on patient's age to complete this topic Insurance MEDICAID OUT OF STATE [facility] Advance Directives * Full Code (Latest Code Status on File) Date Activated Date Inactivated Comments 08/09/2021 9:37 AM * Full Code Date Activated Date Inactivated Comments 08/08/2021 4:01 PM 08/09/2021 9:37 AM Care Teams Tanning Consultant Relationship Specialty Start Date End Date Unknown Unknow Provider Address PCP - General 08/08/21
[2025-07-08 16:20] VITALS: BP 99/62; PULSE 63; RESP 20; TEMP 36.7; O2SAT 97
--- NOTE | 2025-07-08 16:49 | PHA.MEDREC ---
Pharmacy Consult ? Medication Reconciliation Pharmacy has completed the medication reconciliation. MED REC COMPLETE USING LIST PROVIDED BY CHRISTI DATED 07/08/25
[2025-07-08 18:31] VITALS: BP 108/52; PULSE 55; RESP 16; TEMP 36.8; O2SAT 98
[2025-07-08 18:32] VITALS: BP 108/52; PULSE 55; RESP 16; TEMP 36.8; O2SAT 98
== END 2025-07-08 19:50 | disposition home or self-care (01) ==
PROVIDERS: Emergency Provider Emergency Medicine
DX: R10.A2 Flank pain, left side (principal); K59.00 Constipation, unspecified; R35.0 Frequency of micturition; Z87.442 Personal history of urinary calculi; Z79.899 Other long term (current) drug therapy
CPT/HCPCS: 36415; 74176; 80053; 81003; 85025; 96361; 96365; 96375; 99284; 99285; J0131; J1171; J1885

== ENCOUNTER → 2025-07-08 14:42 | Outpatient (BNV) | payer OTHER, SELFPAY | PROVIDERS: Emergency Provider Emergency Medicine; Visit Provider Radiology Diagnostic Radiology | DX: K56.41 Fecal impaction (principal) | CPT/HCPCS: 74176 ==